=== PATIENT | female | born 1985 | race African-American/Black ===

== ENCOUNTER 2018-06-23 16:24 | Emergency (ER) | payer OTHER | END 2018-06-23 17:19 | disposition home or self-care (01) | LOC: FTE 16:24 | DX: R68.84 Jaw pain (principal); K08.89 Other specified disorders of teeth and supporting structures | CPT/HCPCS: 99283; Z7502 ==

== ENCOUNTER 2018-10-16 21:44 | Emergency (ER) | payer OTHER | END 2018-10-17 00:36 | disposition home or self-care (01) | LOC: FTE 21:44 | DX: S93.602A Unspecified sprain of left foot, initial encounter (principal); X58.XXXA Exposure to other specified factors, initial encounter; Y92.9 Unspecified place or not applicable | CPT/HCPCS: 73610; 73630-LT; 99283-25 ==